=== PATIENT | male | born 1975 | race Caucasian/White ===

== ENCOUNTER 2018-06-13 23:26 | Emergency (ER) | payer BC ==
[~2018-06-13] VITALS: Ht 182.9 cm; Wt 99.8 kg
--- OUTSIDE RECORDS SUMMARY | ~2018-06-13 | XMS | Clinical Summary ---
Demographics + + + | Address | [address] | | | [place] [address] | + + + | Home Phone | | + + + | Preferred Language | Unknown | + + + | Marital Status | Single | + + + | Adventism Affiliation | Unknown | + + + | Race | Unknown | + + + | Ethnic Group | Unknown | + + + Author + + + | Author | [facility] [employer] | + + + | Organization | [facility] | + + + | Address | Unknown | + + + | Phone | Unavailable | + + + Support + + + + + | Name | Relationship | Address | Phone | + + + + + | Jolie Blount | ECON | [address] | | | | | [place] [address] | | + + + + + Care Team Providers + +------+ + | Care Patient Care Director Name | Role | Phone | + +------+ + | Dr. Kacy | PP | Unavailable | + +------+ + Allergies Not on File Current Medications Not on file Active Problems Not on file Social History + +-------+ +--------+------+ | Tobacco Use | Types | Packs/Day | Years | Date | | | | | Used | | + +-------+ +--------+------+ | Never Assessed | | | | | + +-------+ +--------+------+ + + + | Sex Assigned at | Date Recorded | | | | + + + | Not on file | | + + + Plan of Treatment Not on file Results Not on filefrom Last 3 Months"
--- OUTSIDE RECORDS SUMMARY | ~2018-06-13 | XMS | Clinical Summary ---
Demographics + + + | Address | [address] | | | [place] [address] | + + + | Home Phone | | + + + | Preferred Language | Unknown | + + + | Marital Status | Single | + + + | Islam Affiliation | Unknown | + + + | Race | Unknown | + + + | Ethnic Group | Unknown | + + + Author + + + | Author | [facility] [employer] | + + + | Organization | [facility] | + + + | Address | Unknown | + + + | Phone | Unavailable | + + + Support + + + + + | Name | Relationship | Address | Phone | + + + + + | Jolie Blount | ECON | [address] | | | | | [place] [address] | | + + + + + Care Team Providers + +------+ + | Care Career Placement Specialist Name | Role | Phone | + [...]
--- NOTE | 2018-06-14 07:19 | EKG ---
[facility] [address] [facility] [place] [address] Signed Normal sinus rhythm Normal ECG No previous ECGs available Confirmed by PAVAN LO MD ([id number] on 06/14/2018 7:18:47 AM Electronically Signed By: PAVAN LO MD 06/14/18 0719 PATIENT NAME: CARLEY AGOSTO LISETH Electrocardiogram DATE OF : 73 PHYSICIAN: PAVAN LO MD REPORT #: [id number] REPORT IS CONFIDENTIAL AND NOT TO BE RELEASED WITHOUT AUTHORIZATION
== END 2018-06-14 01:31 | disposition home or self-care (01) ==
LOC: ED 23:26
DX: R20.2 Paresthesia of skin (principal)
CPT/HCPCS: 80053; 81001; 84443; 85025; 93005; 93010; 99284-25; J7030